=== PATIENT | male | born 1970 | race Caucasian/White ===

== ENCOUNTER 2016-10-18 16:05 | Inpatient (IN) ==
--- NOTE | 2016-10-18 16:16 | Emergency Department Report ---
Abdominal Pain HPI - General Chief Complaint: Abdominal Pain <Nathan Navarrete Q - 10/18/16 16:16> Stated Complaint: Abdominal Pain <Nathan Navarrete - 10/18/16 16:16> Time Seen by Provider: 10/18/16 16:15 <Nathan Navarrete Q - 10/18/16 16:16> Source: patient <Nathan Navarrete - 10/18/16 17:08> Mode of arrival: ambulatory <Nathan Navarrete - 10/18/16 17:08> Limitations: no limitations <Nathan Navarrete - 10/18/16 17:08> - History of Present Illness HPI narrative: Patient is a 46-year-old male presents emergency room for evaluation of diffuse abdominal pain. 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 or his primary medical physician today decided present to the ER for evaluation complaining of 10/10 pain <Nathan Navarrete Q - 10/18/16 17:13> MD complaint: abdominal pain <Nathan Navarrete Q - 10/18/16 17:08> Onset (ago): week(s) (2 weeks) <Nathan Navarrete - 10/18/16 17:08> Consistency: constant <Nathan Navarrete - 10/18/16 17:08> Quality: sharp <Nathan Navarrete - 10/18/16 17:08> - Related Data Home Medications Medication Instructions Recorded Confirmed Acetaminophen [Acetaminophen Extra 1,000 mg PO Q4H PRN 10/18/16 10/18/16 Strength] Previous Rx's Medication Instructions Recorded Ascorbic Acid [Vitamin C] 500 mg PO WB tablet 10/23/16 Ciprofloxacin [Cipro] 500 mg PO BID #14 tablet 10/23/16 Ferrous Sulfate [Feosol] 324 mg PO WB tablet 10/23/16 Lisinopril [Prinivil] 10 mg PO DAILY #30 tablet 10/23/16 Mesalamine [Asacol Hd] 800 mg PO TID #90 tablet 10/23/16 MetroNIDAZOLE [Flagyl] 500 mg PO BIDWM #14 tablet 10/23/16 Oxycodone/APAP 10/325 [Percocet 1 tab PO Q4H PRN #40 tablet 10/23/16 10/325] PredniSONE [Deltasone] 40 mg PO WB #30 tablet 10/23/16 <Nathan Navarrete Q - 10/18/16 16:16> Allergies Allergy/AdvReac Type Severity Reaction Status Date / Time amoxicillin Allergy Severe SWELLING Verified 10/18/16 16:22 Onions Allergy Intermediate BLEEDING Verified 10/18/16 16:22 Penicillins Allergy Unknown Verified 10/18/16 16:22 hydrocodone AdvReac Unknown "TEARS UP Verified 10/18/16 16:22 MY GUT" <Nathan Navarrete Q - 10/18/16 16:16> Review of Systems Constitutional: Reports: weakness. Denies: fever, chills <Nathan Navarrete Q - 10/18/16 17:08> ENT: Denies: throat pain, congestion <Nathan Navarrete Q - 10/18/16 17:08> Gastrointestinal: Reports: abdominal pain, nausea, diarrhea. Denies: vomiting, constipation <Nathan Navarrete Q - 10/18/16 17:08> Genitourinary: Denies: dysuria, frequency <Nathan Navarrete Q - 10/18/16 17:08> Neurological: Denies: headache, weakness <Nathan Navarrete Q - 10/18/16 17:08> [facility]LY [facility] Patient Stated Medical History Other GI Yes: ULCERATIVE COLITIS <Sumeet Ghosh C - 10/18/16 19:15> Medical History Updates: Ulcerative colitis. Anal fissures <Nathan Navarrete Q - 10/18/16 17:08> Surgical History: Setons for perirectal fistulas <Nathan Navarrete Q - 10/18/16 17:13> Family History: Family history of MIs <Nathan Navarrete Q - 10/18/16 17:13> - Social History Smoking status: Never smoker <Nathan Navarrete Q - 10/18/16 17:08> Substance use type: does not use <Nathan Navarrete Q - 10/18/16 17:08> Alcohol intake frequency: does not drink <Nathan Navarrete Q - 10/18/16 17:08> Physical Exam - Limitations Limitations: no limitations <Nathan Navarrete - 10/18/16 17:13> - General General appearance: alert, in distress <Nathan Navarrete Q - 10/18/16 17:13> - Eye Eye exam: Present: normal appearance <Nathan Navarrete Q - 10/18/16 17:13> - ENT ENT exam: Present: normal oropharynx, mucous membranes moist <Doretha Navarreten Q - 10/18/16 17:13> - Neck Neck exam: Present: full ROM <Doretha Navarreten Q - 10/18/16 17:13> - Chest Chest inspection: Present: symmetric chest wall rise <Nathan Navarrete Q - 17:13> - Respiratory Respiratory exam: Present: normal lung sounds bilaterally. Absent: respiratory distress, wheezes, stridor <Doretha Navarreten Q - 10/18/16 17:13> - Cardiovascular Cardiovascular exam: Present: regular rate, normal rhythm, normal heart sounds <Doretha Navarreten Q - 10/18/16 17:13> - Abdominal Exam Abdominal exam: Present: soft, tenderness (tenderness to palpation localizing to the left lower quadrant), guarding. Absent: distention, rebound <Doretha Navarreten Q - 10/18/16 17:13> - Rectal Exam Rectal exam: Present: other (patient has to seton placements in perirectal fistulas, one of a possible sign of perirectal fistula) <Doretha Navarreten Q - 17:13> - Skin Skin exam: Present: warm, dry <Doretha Navarreten Q - 10/18/16 17:13> - Neurological Exam Neurological exam: Present: alert, oriented X3 <Doretha Navarreten Q - 10/18/16 17: 13> - Psychiatric Psychiatric exam: Present: normal affect, normal mood <Doretha Navarreten Q - 10/18 17:13> Course Vital Signs Temperature 98.8 F 10/18/16 16:05 Pulse Rate 109 H 10/18/16 16:05 Respiratory Rate 18 10/18/16 16:05 Blood Pressure 141/76 H 10/18/16 16:05 Pulse Oximetry 96 10/18/16 16:05 Temperature 98 F 10/18/16 18:33 Pulse Rate 99 10/18/16 18:33 Respiratory Rate 18 10/18/16 18:33 Blood Pressure 137/61 10/18/16 18:33 Pulse Oximetry 97 10/18/16 18:33 <Sumeet Ghosh - 10/18/16 19:15> Abdominal Pain - MDM Narrative Medical decision making narrative: Labs / imaging reviewed in detail with the patient and questions are answered. Patient is given IV hydration. Patient is given analgesic pain medication in the emergency department with improvement of symptoms. Patient is given 125 mg of Solu-medrol intravenously times one. Patient is discussed with Dr. Sauceda of telemedicine hospitalist service and admitted to the service of Dr. Phillips in improved condition. Patient and family are in agreement with the current plan of management. Patient is admitted to the hospital in improved condition. No further orders from accepting physician who is in agreement with the current plan of management. Accepting physician will make her own surgical consultation as needed. <Sumeet Ghosh - 10/18/16 19:15> - Differential Diagnosis Differential diagnosis: Likely: abdominal pain, diverticulitis, gastroenteritis , pancreatitis, small bowel obstruction <Sumeet Ghosh - 10/18/16 19:15> - Lab Data Result diagrams: 10/23/16 03:57 10/23/16 03:56 <Nathan Navarrete Q - 10/18/16 16:16> Lab Results 10/18/16 10/18/16 10/18/16 Range/Units 16:36 16:36 17:05 WBC 13.3 H (4.5-11.0) T/MM3 RBC 4.74 (4.50-5.90) M/MM3 Hgb 10.2 L (13.5-17.5) GM/DL Hct 33.6 L (41-53) % MCV 70.9 L (80-100) UM3 MCH 21.5 L (26-34) UUG MCHC 30.4 L (31-37) GM/DL RDW Std Deviation 47.2 (36.9-50.2) FL Plt Count 724 H (130-400) T/MM3 MPV 8.4 L (9.4-12.4) UM3 Immature Gran % (Auto) 0.3 (0.0-0.5) % Neut % (Auto) 83.6 H (33-66) % Lymph % (Auto) 5.8 L (23-45) % [place] % (Auto) 9.4 H (0-9.0) % Eos % (Auto) 0.8 (0-4) % Baso % (Auto) 0.1 (0-2) % Neut # 11.1 H (1.8-7.7) T/MM3 Lymph # 0.8 L (1-4.8) T/MM3 [place] # 1.3 H (0-0.8) T/MM3 Eos # 0.1 (0-0.5) T/MM3 Baso # 0.0 (0-0.2) T/MM3 Abs Immat Gran (auto) 0.04 H (0.00-0.03) T/MM3 Turbidity < 20 (0-20) Sodium 137 (134-144) MEQ/L Potassium 3.3 L (3.6-5) MEQ/L Chloride 102 (98-107) MEQ/L Carbon Dioxide 24 (22-30) MEQ/L Anion Gap 11 (5-15) MEQ/L BUN 12.0 (9-20) MG/DL Creatinine 0.7 L (0.8-1.5) MG/DL GFR Calculation 121 BUN/Creatinine Ratio 17 (6-26) RATIO Glucose 212 H (75-110) MG/DL Calculated Osmolality 270 (261-280) MOSM/KG Calcium 8.2 L (8.4-10.2) MG/DL Total Bilirubin 0.30 (0.20-1.30) MG/DL Icterus Index < 2 (0-7) AST 12 L (17-59) U/L ALT 28 (21-72) U/L Alkaline Phosphatase 111 (38-126) U/L C-Reactive Protein 193.4 H (0-9) MG/L Total Protein 6.6 (6.3-8.2) G/DL Albumin 3.4 L (3.5-5.0) G/DL Globulin 3.2 (2.4-3.6) G/DL Albumin/Globulin Ratio 1.1 (1.1-2.2) RATIO Lipase 32 (23-300) U/L Specimen Hemolysis < 15 (0-25) Ur Collection Type Urine, clean catch Urine Color Yellow (YELLOW) Urine Clarity Clear Urine pH 6.0 (5.0-8.0) Ur Specific [place] 1.020 (1.015-1.025) Urine Protein 1+ A (NEGATIVE) Urine Glucose (UA) Negative (NEGATIVE) Urine Ketones Negative (NEGATIVE) Urine Occult Blood Trace-lysed (NEGATIVE) Urine Nitrate Negative (NEGATIVE) Urine Bilirubin Negative (NEGATIVE) Urine Urobilinogen 0.2 (NORMAL) EU/DL Ur Leukocyte Esterase Negative (NEGATIVE) Urine RBC 0-1 (0-3) /HPF Urine WBC 1-3 (0-5) /HPF Urine Bacteria None seen (NEGATIVE) Ur Culture Indicated? Cult not indicated <Sumeet Ghosh C - 10/18/16 19:15> - Radiology Data CT ABD/PELVIS: Colitis, recommend follow-up colonoscopy. Transverse colon distention and possible partial obstruction, neoplasm or stricture in the descending colon cannot be excluded. <Sumeet Ghosh 10/18/16 19:15> Disposition Clinical Impression: Ulcerative colitis Qualifiers: Ulcerative colitis location: unspecified ulcerative colitis location Digestive disease complication type: with fistula Qualified Code(s): K51.913 - Ulcerative colitis, unspecified with fistula <Nathan Navarrete Q 11/28/16 06:27> Disposition: 02 To [facility] [place] Acute Care <Nathan Navarrete Q 11/28/16 06:27> Condition: Improved <Nathan Navarrete Q 11/28/16 06:27> Instructions: <Nathan Navarrete Q 10/18/16 16:16> Prescriptions: New Ascorbic Acid [Vitamin C] 500 mg PO WB tablet Ciprofloxacin [Cipro] 500 mg PO BID #14 tablet Ferrous Sulfate [Feosol] 324 mg PO WB tablet Lisinopril [Prinivil] 10 mg PO DAILY #30 tablet MetroNIDAZOLE [Flagyl] 500 mg PO BIDWM #14 tablet Oxycodone/APAP 10/325 [Percocet 10/325] 1 tab PO Q4H PRN #40 tablet PRN Reason: Pain Mesalamine [Asacol Hd] 800 mg PO TID #90 tablet PredniSONE [Deltasone] 40 mg PO WB #30 tablet Continue Acetaminophen [Acetaminophen Extra Strength] 1,000 mg PO Q4H PRN PRN Reason: Pain Discontinued Mesalamine [Asacol Hd] 800 mg PO DAILY <Nathan Navarrete Q - 10/18/16 16:16> Referrals: Arslan Alcazar MD [Family Provider] - <Nathan Navarrete - 16:16> Forms: <Nathan Navarrete Q - 10/18/16 16:16> Time of Disposition: 18:50 (Admit. Dr. Phillips) <Sumeet Ghosh - 10/18/16 19:15 > - Seen By: physician <Sumeet Ghosh - 10/18/16 19:15>
[2016-10-18] MEDS ORDERED: HYDROMORPHONE 2 MG/ML INJECTION IVP ONE ×2 (16:22→17:34)
[2016-10-18] MEDS ORDERED: NS 1,000 ML IV ONE (16:23)
[2016-10-18] MEDS: SALINE FLUSH 10ml SYRINGE IVF PRN ×2 (16:41→17:44)
[2016-10-18] MEDS ORDERED: METHYLPREDNISOLONE SOD SUCC 125mg/2ml INJECTION IVP ONE (17:04)
[2016-10-18] MEDS ORDERED: NS 100 ML ONE (17:24)
[2016-10-18] MEDS ORDERED: SALINE FLUSH 10ml SYRINGE ONE (17:24)
[2016-10-18] MEDS ORDERED: IOHEXOL 300mg/ml 100ml INJECTION ONE (17:24)
[2016-10-18] MEDS ORDERED: ACETAMINOPHEN 500 MG TABLET PO PRN (20:08)
[2016-10-18] MEDS ORDERED: ONDANSETRON 4 MG/2 ML INJECTION IVP PRN (20:08)
[2016-10-18 20:18] VITALS: BMI 25.1
[2016-10-18] MEDS: HYDROMORPHONE 2 MG/ML INJECTION IVP PRN ×2 (20:32→22:49)
[2016-10-18] MEDS: NS 1,000 ML IV SCH (20:38)
--- NOTE | 2016-10-18 20:59 | History & Physical Report ---
History of Present Illness Date: 10/18/16 Chief complaint: Abdominal pain/diarrhea HPI: 46 yo M with PMH of ulcerative colitis presented to the ED today with reports of a UC flare. Patient reports his symptoms started 1 week ago with fever and rectal fistula opening. He reports 10-15 loose stools a day, some with a mild amount of blood in them. He reports he has been taking his mesalamine at home and no other medications. He gets a flare about once a year. 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 He reports he decided to come in to the ED today because he was in bed for 2-3 days and he just wasn't getting any better. He was admitted for steroids and supportive care. Review of Systems All systems: reviewed and no additional remarkable complaints except as stated PFSH Patient Stated Medical History Other HEENT Yes: rt ear swells Other GI Yes: ULCERATIVE COLITIS Medical History Updates: Ulcerative colitis. Anal fissures Surgical History: Setons for perirectal fistulas - Social History Smoking status: Never smoker Medications Home Medications Medication Instructions Recorded Confirmed Type Acetaminophen [Acetaminophen Extra 1,000 mg PO Q4H PRN 10/18/16 10/18/16 History Strength] Mesalamine [Asacol Hd] 800 mg PO DAILY 10/18/16 10/18/16 History Allergies Allergy/AdvReac Type Severity Reaction Status Date / Time amoxicillin Allergy Severe SWELLING Verified 10/18/16 16:22 Onions Allergy Intermediate BLEEDING Verified 10/18/16 16:22 Penicillins Allergy Unknown Verified 10/18/16 16:22 hydrocodone AdvReac Unknown "TEARS UP Verified 10/18/16 16:22 MY GUT" Exam Vital Signs: Temperature 98 F 10/18/16 18:33 Pulse Rate 99 10/18/16 18:33 Respiratory Rate 18 10/18/16 18:33 Blood Pressure 137/61 10/18/16 18:33 Pulse Oximetry 97 10/18/16 18:33 Height: 1.83 m Weight: 84 kg Body Mass Index: 25.1 - Constitutional Present: well nourished, well developed - Routine Respiratory Exam Present: CTA bilaterally. Absent: wheezes - Routine Cardiovascular Exam Present: RRR. Absent: murmur - Routine Abdominal Exam Present: soft, tenderness - Routine Rectal Exam Comments: nursing staff reports 4 open fissures, no acute erythema or infection noted. - Routine Extremities Exam Present: normal capillary refill - Routine Skin Exam Present: dry, warm - Routine Neurological Exam Present: alert, oriented X3, CN II-XII intact - Routine Psychiatric Exam Present: normal affect Results - Labs CBC & Chem 7: 10/18/16 16:36 10/18/16 16:36 Assessment and Plan (1) Ulcerative colitis Current visit: Yes Status: Acute 10/18/16 21:01 UC with flare. Will start supportive care with IVF, CLD and PO steroids. Will start prednisone 60mg QD. Patient has not used biologics in the past for [place] and has not seen his GI specialist in a few years. Patient hypodermically stable and not acidic at this time. Continue home mesalamine. Consider colorectal surg consult in AM. DVT Prophylaxis: SCD's Resuscitation Status: Full Code Sepsis Assessment - Evaluation Possible source: GI tract/intra-abdominal Confirmed Suspected Infection: No (UC flare) SIRS Criteria: WBC > or equal to 12,000 Hospital Course Summary Disclaimer: The visit summary below is not to be considered part of the above Progress Note.
[2016-10-18] MEDS: PredniSONE 20 MG TABLET PO SCH (21:19)
[2016-10-19] MEDS: HYDROMORPHONE 2 MG/ML INJECTION IVP PRN ×9 (01:02→22:15)
[2016-10-19] MEDS: ZOLPIDEM 5 MG TABLET PO PRN (01:10)
[2016-10-19] MEDS: NS 1,000 ML IV SCH ×2 (05:58→15:34)
[2016-10-19] MEDS: SALINE FLUSH 10ml SYRINGE IVF PRN ×3 (08:40→13:02)
--- NOTE | 2016-10-19 08:42 | CT Scan Report ---
Indication: abdominal pain, history of ulcerative colitis PROCEDURE: CT abdomen pelvis w con: Encounter: Initial Comparison: CT abdomen and pelvis dated February 11, 2016 and December 08, 2014 Technique: Axial CT images were performed through the abdomen and pelvis after the administration of intravenous contrast. Coronal and sagittal two-dimensional reformats. Automated Exposure Control and Iterative Reconstruction dose reducing techniques were utilized. Contrast: Omnipaque 300 100 mL Findings: The lung bases are clear. The liver is unremarkable. The gallbladder is within normal limits. The spleen, pancreas and adrenal glands are normal. Bilateral renal cysts. No abdominal or pelvic adenopathy. Bladder is normal. Wall thickening and inflammatory change involving the colon extending from the proximal transverse through the rectum consistent with patient's history of ulcerative colitis. The appendix appears normal. No evidence of small bowel obstruction. Colonic involvement is of similar extent compared to the prior study. Impression: Continued findings of ulcerative colitis which appears active extending from the transverse colon through the rectum. There is a probable inflammatory stricture at the splenic flexure leading to gradual progression of chronic transverse colonic distention. There is a preliminary report by [facility]. .
[2016-10-19] MEDS: PredniSONE 20 MG TABLET PO SCH (08:58)
[2016-10-19] MEDS: MESALAMINE 800 MG TABLET PO SCH (09:00)
--- NOTE | 2016-10-19 09:43 | Progress Note ---
Subjective: Feels much better. Wants to try eating. Leakage from his fistula sites is much improved. Pain much improved. Objective Vital signs: Temperature 97.3 F 10/19/16 07:28 Pulse Rate 75 10/19/16 07:18 Respiratory Rate 18 10/19/16 07:18 Blood Pressure 124/71 10/19/16 07:18 Pulse Oximetry 97 10/19/16 07:18 Oxygen Delivery Method Room Air Gen.-he is awake alert oriented 3, NAD HEENT-PERRLA EOMI Neck-supple no JVD no bruits Cardiovascular-regular rate and rhythm Lungs-CTAB Abdomen-mild tenderness LLQ Extremities-no edema cyanosis or clubbing Neurological-nonfocal Skin-WDI Weight: 83.3 kg Results - Labs CBC & Chem 7: 10/18/16 16:36 10/18/16 16:36 Assessment and Plan (1) Ulcerative colitis Current visit: Yes Status: Acute Clinically improving. We'll continue steroids and mesalamine. Advance diet as tolerated. Continue IV fluids. (2) Anemia of chronic disease Current visit: Yes Status: Chronic Baseline unclear. We'll monitor and transfuse if necessary. Patient reports only trace amount of blood in stools on occasion. Sepsis Assessment - Evaluation Sepsis screening result: No Definite Risk Hospital Course Summary Disclaimer: The visit summary below is not to be considered part of the above Progress Note.
--- NOTE | 2016-10-19 15:38 | General Surgery Consult Note ---
Consult date: 10/19/16 Attending Physician: Neida Villegas MD Reason for consult: other (ulcerative colitis) [facility] Patient Stated Medical History Other HEENT Yes: rt ear swells Other GI Yes: ULCERATIVE COLITIS Medical History Updates: Ulcerative colitis. Anal fissures and fistulas Surgical History: Colonoscopy and stents and [facility]ons for perirectal fistulas 2015 in [place]. Tonsilectomy age 10. Family History: Unknown, he is adopted - Social History Smoking status: Never smoker Alcohol intake frequency: holidays/special occasions only (used to drink more heavily, "quit" in January 2016) Household members: spouse Current occupational status: unemployed Does patient use chewing tobacco?: Yes Medications Home Medications Medication Instructions Recorded Confirmed Type Acetaminophen [Acetaminophen Extra 1,000 mg PO Q4H PRN 10/18/16 10/18/16 History Strength] Mesalamine [Asacol Hd] 800 mg PO DAILY 10/18/16 10/18/16 History Allergies Allergy/AdvReac Type Severity Reaction Status Date / Time amoxicillin Allergy Severe SWELLING Verified 10/18/16 16:22 Onions Allergy Intermediate BLEEDING Verified 10/18/16 16:22 Penicillins Allergy Unknown Verified 10/18/16 16:22 hydrocodone AdvReac Unknown "TEARS UP Verified 10/18/16 16:22 MY GUT" Review of Systems 10-point ROS: negative except for HPI and the following: - General General: Present: fever (prior to admission) - Gastrointestinal Gastrointestinal: Present: diarrhea, other (abd pain) - Vital Signs Last Vital Signs Temp 97.0 F 10/19/16 15:04 Pulse 73 10/19/16 15:04 Resp 18 10/19/16 15:04 BP 128/84 10/19/16 15:04 Pulse Ox 100 10/19/16 15:04 - Laboratory Result Diagrams: 10/18/16 16:36 10/18/16 16:36 Hospital Course Summary Disclaimer: The visit summary below is not to be considered part of the above Progress Note. Sepsis Assessment - Evaluation Sepsis screening result: No Definite Risk
[2016-10-20] MEDS: HYDROMORPHONE 2 MG/ML INJECTION IVP PRN ×11 (00:25→23:23)
[2016-10-20] MEDS: ZOLPIDEM 5 MG TABLET PO PRN ×2 (00:32→23:22)
[2016-10-20] MEDS: NS 1,000 ML IV SCH ×3 (02:04→22:22)
--- NOTE | 2016-10-20 08:11 | Wound Care Progress Note ---
Wound Management - Patient Status Premedicated Prior to Dressing Change: No - Wound Posterior Buttock Wound Type: Fistula Wound Present on Admission?: Yes Primary Dressing: Absorbant Pad (Pt has multiple fistulas in rectal area, Pt had a lianet drain in one previously placed by . At this time Dr You consulted.)
[2016-10-20] MEDS: PredniSONE 20 MG TABLET PO SCH (08:43)
[2016-10-20] MEDS: MESALAMINE 800 MG TABLET PO SCH ×2 (08:44→21:15)
--- NOTE | 2016-10-20 19:23 | Progress Note ---
Subjective: Osbaldo reports ongoing left lower quadrant pain which he currently rates at approximate 7.5/10. He requires frequent administration of IV Dilaudid at 2-3 hour intervals. He is tolerating oral diet and does not note change in pain level associated with food. Has been ambulatory without lightheadedness or dizziness. He denies nausea or vomiting but continues to have up to 15 stools a day with some rectal bleeding. Fistulas persist but he's had no further fever or chills. Objective Vital signs: Temperature 96.0 F L 10/20/16 15:09 Pulse Rate 87 10/20/16 15:09 Respiratory Rate 18 10/20/16 15:09 Blood Pressure 146/84 H 10/20/16 15:09 Pulse Oximetry 98 10/20/16 15:09 Oxygen Delivery Method Room Air EXAM General-NAD, alert, fluent speech HEENT-conjunctiva clear, conjugate gaze Lungs-respirations nonlabored, good airflow, breath sounds clear Cardiac-regular rhythm, S1-S2 Abd-decreased bowel sounds, abdomen is soft but there is marked tenderness with guarding in the left lower quadrant and moderate tenderness in the left upper quadrant. Ext-without edema Neuro-moving all extremities well, ambulating without assistance Psych-calm, cooperative - Weight: 85 kg Results - Labs CBC & Chem 7: 10/20/16 10:19 10/20/16 10:19 Labs: MCV 72.1, 77% neutrophils, 5% bands, 11% lymphocytes, 7% monocytes Magnesium 2.3, phosphorus 2.0, calcium 8.1 Assessment and Plan (1) Ulcerative colitis Problem details: Acute flare; with fistulas Current visit: Yes Status: Acute Assessment and Plan: Ulcerative flare-acute flare, with fistulas Abdominal pain Diarrhea Microcytic anemia Reactive thrombocytosis Hypophosphatemia Osbaldo continues to require narcotic pain medications and have multiple loose stools daily with associated blood loss. Hemoglobin is down from approximately 12 a year ago to current value of 9.5 with development of microcytosis and thrombocytosis suggestive of iron deficiency. There is persistent leukocytosis which may in part be due to steroid administration. Surgical consultation pending. Mesalamine initiated yesterday-dose increased to 1600 mg 3 times a day. Continue steroids but will resume IV dosing until abdominal symptoms began to stabilize. Add IV metronidazole pending surgical consultation. Suspect iron deficiency due to chronic rectal blood loss-iron studies to be obtained. Thrombocytosis likely due to acute inflammation that may also reflect iron deficiency. Supplement phosphorus po. CT scan reviewed by myself, high-risk medications (IV narcotics) in use, laboratory data reviewed. Sepsis Assessment - Evaluation Sepsis screening result: No Definite Risk Hospital Course Summary Disclaimer: The visit summary below is not to be considered part of the above Progress Note. Hospital Course: 10/20/16 19:59 Osbaldo continues to require narcotic pain medications and have multiple loose stools daily with associated blood loss. Hemoglobin is down from approximately 12 a year ago to current value of 9.5 with development of microcytosis and thrombocytosis suggestive of iron deficiency. There is persistent leukocytosis which may in part be due to steroid administration. Surgical consultation pending. Mesalamine initiated yesterday-dose increased to 1600 mg 3 times a day. Continue steroids but will resume IV dosing until abdominal symptoms began to stabilize. Add IV metronidazole pending surgical consultation. Suspect iron deficiency due to chronic rectal blood loss-iron studies to be obtained. Thrombocytosis likely due to acute inflammation that may also reflect iron deficiency. Supplement phosphorus po.
--- NOTE | 2016-10-20 19:51 | Consultation ---
DATE OF SERVICE 10/20/2016 FINDINGS Mr. Lobo is a 46-year-old male whom I was asked to see in consultation as a result of his history and physical findings of abdominal pain in conjunction with an abnormal CT scan. Mr. Lobo does have a known history for ulcerative colitis. He informs me that he was diagnosed with UC about 14 years ago. He is on Asacol as well as intermittent oral steroids. He informs me that he has seen Dr. Carson in the past from a gastroenterology standpoint. 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 The patient also informs me that he has been under the care of Dr. Minh De who is a colorectal surgeon. He states that Dr. De has placed several "drains" within his perianal region. He states he has had a longstanding history as well for perianal fistulas. Patient states that about a week ago his fistula has begun to stop draining. He states that they " swelled up." He also states that he began to experience increasing pain within his abdomen. Patient states that on his own behalf he began to eat significantly less for he has learned in the past this does seem to help with the pain. Patient states that eventually the areas within the perianal region "popped open and drained a considerable amount of purulent material." Patient states that this was the most "pus he has ever drained." As a result of his increasing pain and drainage from the perianal region he presented to our facility for further care. The patient has been initiated on oral prednisone. Today he states that his pain is improving. He is tolerating a regular diet. He has not had nausea or vomiting. The perianal pain that he had been experiencing is markedly improved. PAST MEDICAL HISTORY, PAST SURGICAL HISTORY, MEDICATIONS, ALLERGIES, SOCIAL HISTORY, FAMILY HISTORY, REVIEW OF SYSTEMS Performed by my nurse practitioner, Yuri Harmon APRN PHYSICAL EXAMINATION GENERAL: Mr. Lobo is a 46-year-old male who this afternoon did not appear to be in acute distress. VITAL SIGNS: Temperature 96.0, pulse 87, respirations 18, blood pressure 146/84 , SAO2 98% on room air. HEENT: Normocephalic. Pupils are equally round and react to light and accommodation. CHEST: Clear to auscultation bilaterally. HEART: Regular rate and rhythm. Normal S1 and S2 without gallops, murmurs or clicks. ABDOMEN: Palpation of the abdomen did indeed reveal significant tenderness within the left lower quadrant, left mid abdomen, left upper quadrant. The right side of his abdomen was fairly soft and nontender. The patient did have a component of both voluntary involuntary guarding upon palpation. He did not have yary rebound tenderness. I do not appreciate evidence for hepatosplenomegaly or other abnormal masses. EXTREMITIES: Without clubbing, cyanosis, or edema. NEURO: Cranial nerves II-XII grossly intact. Patient is without focal motor or sensory deficits. RECTAL: The patient was placed in a right lateral decubitus position. Buttocks were so that one could see the perianal region. The patient did have a bluish catheter present within a fistula tract. I did not perform digital rectal examination today. The perianal region was without significant erythema nor drainage currently. Palpation around the perianal region did not elicit severe pain to the patient. LABORATORY/RADIOGRAPHIC EVALUATION The patient had a CBC today and his white count was elevated at 15.5 which could be secondary to his high-dose corticosteroids. BMP was obtained and found to be without marked abnormalities. CT scan of his abdomen and pelvis was obtained. CT scan did reveal continued findings of ulcerative colitis with active disease extending from the transverse colon through the rectum. There was a possibility of an inflammatory stricture present also near the splenic flexure. There was no evidence for abscess or perforation. No evidence to suggest toxic megacolon. ASSESSMENT 46-year-old gentleman with exacerbation of his ulcerative colitis. PLAN I agree with current medical management of this patient by placing him on Asacol and high-dose oral corticosteroids. Patient without an acute surgical abdomen at this time. Patient without perianal abscess requiring surgical intervention. Will continue to see the patient intermittently during his hospital course. [facility]
[2016-10-20] MEDS: MetroNIDAZOLE PB 500 MG/100 ML BAG IV SCH (21:04)
[2016-10-20] MEDS: PHOSPHORUS 250 MG TABLET PO SCH (21:05)
[2016-10-21] MEDS ORDERED: METHYLPREDNISOLONE SOD SUCC 40mg/ml INJECTION IM SCH (01:00)
[2016-10-21] MEDS: NS 1,000 ML IV SCH ×3 (01:12→20:01)
[2016-10-21] MEDS: METHYLPREDNISOLONE SOD SUCC 40mg/ml INJECTION IVP SCH ×3 (01:29→17:34)
[2016-10-21] MEDS: HYDROMORPHONE 2 MG/ML INJECTION IVP PRN ×10 (01:31→22:51)
[2016-10-21] MEDS: MetroNIDAZOLE PB 500 MG/100 ML BAG IV SCH ×2 (08:07→21:09)
[2016-10-21] MEDS: PHOSPHORUS 250 MG TABLET PO SCH ×4 (08:08→21:10)
[2016-10-21] MEDS: MESALAMINE 800 MG TABLET PO SCH ×3 (08:22→21:09)
--- NOTE | 2016-10-21 16:18 | Progress Note ---
Subjective: Osbaldo continues to have pain in the left lower quadrant although reports it is somewhat improved from yesterday. There is less drainage from the perirectal fistulas and he believes only 2 are open at this time. He slept better last night after adding Ambien. He's had no further fever. Continues to have multiple liquid stools daily with decreasing rectal bleeding. He tolerates food well and has no lightheadedness, nausea, vomiting, or palpitations. Objective Vital signs: Temperature 96.8 F 10/21/16 15:03 Pulse Rate 79 10/21/16 15:03 Respiratory Rate 16 10/21/16 15:03 Blood Pressure 141/85 H 10/21/16 15:03 Pulse Oximetry 97 10/21/16 15:03 Oxygen Delivery Method Room Air EXAM General-NAD, alert, fluent speech HEENT-conjunctiva clear, sclera anicteric Lungs-respirations nonlabored, good airflow, breath sounds clear Cardiac-regular rhythm, S1-S2 Abd-soft, diminished bowel sounds, mild-moderate tenderness left lower quadrant with guarding present-improved from yesterday Ext-without edema Neuro-moving all extremities well, ambulating unassisted Psych-calm, cooperative - Weight: 86.6 kg Results - Labs CBC & Chem 7: 10/21/16 04:33 10/20/16 10:19 Labs: Segs 79, bands 14, lymphocytes 3, monocytes 4 Iron 13, TIBC 299, saturation 4% Assessment and Plan (1) Ulcerative colitis Problem details: Acute flare; with fistulas Current visit: Yes Status: Acute Clinically improving. We'll continue steroids and mesalamine. Advance diet as tolerated. Continue IV fluids. Assessment and Plan: Ulcerative flare-acute flare, with fistulas Abdominal pain Diarrhea Iron deficiency anemia Reactive thrombocytosis Hypophosphatemia Osbaldo continues to require narcotic pain medications and have multiple loose stools daily with associated blood loss. Hemoglobin stable overnight, iron studies consistent with iron deficiency-oral supplements initiated once daily. Leukocytosis improving slowly with increased left shift-if worsens may require repeat CT imaging to exclude abscess formation. Continue IV steroids, oral mesalamine, and metronidazole for acute UC flare. Exam/symptoms minimally changed, may be able to convert to oral steroids in 1-2 days. Thrombocytosis likely due to acute inflammation that may also reflect iron deficiency. Supplement phosphorus po. Recheck in 2-3 days. Pain management problematic, patient has utilized oral Percocet in the past-we will add Percocet 10 every 4 hours as needed to try to minimize IV narcotic use. High-risk medications (IV narcotics) in use, laboratory data reviewed. Sepsis Assessment - Evaluation Sepsis screening result: No Definite Risk Hospital Course Summary Disclaimer: The visit summary below is not to be considered part of the above Progress Note. Hospital Course: 10/20/16 19:59 Osbaldo continues to require narcotic pain medications and have multiple loose stools daily with associated blood loss. Hemoglobin is down from approximately 12 a year ago to current value of 9.5 with development of microcytosis and thrombocytosis suggestive of iron deficiency. There is persistent leukocytosis which may in part be due to steroid administration. Surgical consultation pending. Mesalamine initiated yesterday-dose increased to 1600 mg 3 times a day. Continue steroids but will resume IV dosing until abdominal symptoms began to stabilize. Add IV metronidazole pending surgical consultation. Suspect iron deficiency due to chronic rectal blood loss-iron studies to be obtained. Thrombocytosis likely due to acute inflammation that may also reflect iron deficiency. Supplement phosphorus po. 10/21/16 16:26 Osbaldo continues to require narcotic pain medications and have multiple loose stools daily with associated blood loss. Hemoglobin stable overnight, iron studies consistent with iron deficiency-oral supplements initiated once daily. Leukocytosis improving slowly with increased left shift-if worsens may require repeat CT imaging to exclude abscess formation. Continue IV steroids, oral mesalamine, and metronidazole for acute UC flare. Exam/symptoms minimally changed, may be able to convert to oral steroids in 1-2 days. Thrombocytosis likely due to acute inflammation that may also reflect iron deficiency. Supplement phosphorus po. Recheck in 2-3 days. Pain management problematic, patient has utilized oral Percocet in the past-we will add Percocet 10 every 4 hours as needed to try to minimize IV narcotic use.
[2016-10-21] MEDS: Oxycodone/Apap 10/325 1 TAB PO PRN ×2 (18:02→22:51)
[2016-10-21] MEDS: ZOLPIDEM 5 MG TABLET PO PRN (23:00)
[2016-10-22] MEDS: METHYLPREDNISOLONE SOD SUCC 40mg/ml INJECTION IVP SCH ×3 (00:21→16:21)
[2016-10-22] MEDS: NS 1,000 ML IV SCH ×3 (00:22→12:09)
[2016-10-22] MEDS: HYDROMORPHONE 2 MG/ML INJECTION IVP PRN ×8 (03:04→23:33)
[2016-10-22] MEDS: Oxycodone/Apap 10/325 1 TAB PO PRN ×5 (03:05→20:58)
[2016-10-22] MEDS: MetroNIDAZOLE PB 500 MG/100 ML BAG IV SCH ×2 (08:11→20:51)
[2016-10-22] MEDS: MESALAMINE 800 MG TABLET PO SCH ×3 (08:12→21:26)
[2016-10-22] MEDS: PHOSPHORUS 250 MG TABLET PO SCH ×4 (08:12→21:27)
[2016-10-22] MEDS: FERROUS SULFATE 324 MG TABLET PO SCH (08:12)
--- NOTE | 2016-10-22 11:07 | Pharmacy Consult ---
Pharmacy Consult-[facility] - Consult Information IV IRON CONSULT: Dx: Chronic Anemia: Will give TDI (Total Dose Infusion) over 4 hours. Actual body weight = 89.9kg Hgb Level = 9.5 g/dL (low over last few readings) Calculated Dosing weight = 77.6 kg Total dose needed: 1900 mg (38 mL) Will give test dose of 25mg IV push over 30 seconds. Watch VS q 15 minutes x 1 hr. (watching for anaphylaxis, respiratory distress, hives.) If no reaction will give full dose in NS 500ml TRA 125ml/hr. Watch VS q 1 hr during infusion. Thank you.
--- NOTE | 2016-10-22 11:15 | Progress Note ---
<Magali Harvey - Last Filed: 10/22/16 11:12> Subjective: Osbaldo is seen today in follow up. Some improvement, but still requiring IV Dilaudid for breakthrough pain. Is tolerating regular diet, continues to have loose stools, which is "normal" for him. He denies any N/V. LLQ pain is ongoing- this is his usual site of pain. Chart is reviewed for collateral information. Objective Vital signs: Temperature 95.4 F L 10/22/16 08:00 Pulse Rate 73 10/22/16 08:00 Respiratory Rate 16 10/22/16 08:00 Blood Pressure 151/84 H 10/22/16 08:00 Pulse Oximetry 95 10/22/16 08:00 Oxygen Delivery Method Room Air Weight: 89.9 kg - Constitutional Present: no acute distress, well nourished, average body habitus, cooperative - Routine HEENT Exam Head: Present: normocephalic, atraumatic Eye: Present: EOMI, PERRL. Absent: conjunctival icterus ENT: Present: mucous membranes moist - Routine Respiratory Exam Present: CTA bilaterally. Absent: rales, respiratory distress, rhonchi - Routine Cardiovascular Exam Present: RRR, S1, S2, no murmur - Routine Abdominal Exam Present: soft, tenderness, distended (Mild-moderate). Absent: normoactive bowel sounds (Very hypoactive BS) - Routine Rectal Exam Comments: deferred. Known fistulas - Routine Musculoskeletal Exam Musculoskeletal: Present: no clubbing or cyanosis, normal strength, moving extremities well - Routine Skin Exam Present: intact, dry, warm - Routine Neurological Exam Present: alert, oriented X3, moving all extremities - Routine Psychiatric Exam Present: normal affect, normal thought process, cooperative, good insight, good judgment Results - Labs CBC & Chem 7: 10/21/16 16:57 10/22/16 04:12 - Impressions Imaging reviewed. Assessment and Plan (1) Ulcerative colitis Problem details: Acute flare; with fistulas Current visit: Yes Status: Acute (2) Iron deficiency Current visit: Yes Status: Chronic (3) Reactive thrombocytosis Current visit: Yes Status: Acute (4) Chronic ulcerative colitis with fistula Current visit: Yes Status: Acute (5) HTN (hypertension) Current visit: Yes Status: Suspected (6) Anemia of chronic disease Current visit: Yes Status: Chronic (7) Acute pain Current visit: Yes Status: Acute DVT Prophylaxis: SCD's Resuscitation Status: Full Code Assessment and Plan: 10/22/16- *Acute on Chronic U.C. with chronic fistulas Progressive reactive thrombocytosis concerning for worsening infection. Will add Cipro for bacterial coverage. If not improvement in labs by tomorrow, consider repeating CT scan of A/P. Dr. You following. Continue Flagyl. Tolerating regular diet. *Dehydration- IVF ongoing. *Chronic diarrhea- supportive care. Abx, IVF. *Pain- PO percocet with IV Dilaudid for breakthrough pain. *Low phosphorus- replacing. Repeat renal panel in AM. *EMIL- IV iron, PO iron with vit C for replacement. *HTN- acute? continue to monitor- if persists, will need to add medication. Continue ongoing care. Repeat labs in AM. High risk- IV pain medications. - Time spent with patient 25 - 35 minutes Sepsis Assessment - Evaluation Sepsis screening result: No Definite Risk Possible source: GI tract/intra-abdominal Confirmed Suspected Infection: Yes SIRS Criteria: temperature < or equal to 96.8 Hospital Course Summary Disclaimer: The visit summary below is not to be considered part of the above Progress Note. Hospital Course: 10/20/16 19:59 Osbaldo continues to require narcotic pain medications and have multiple loose stools daily with associated blood loss. Hemoglobin is down from approximately 12 a year ago to current value of 9.5 with development of microcytosis and thrombocytosis suggestive of iron deficiency. There is persistent leukocytosis which may in part be due to steroid administration. Surgical consultation pending. Mesalamine initiated yesterday-dose increased to 1600 mg 3 times a day. Continue steroids but will resume IV dosing until abdominal symptoms began to stabilize. Add IV metronidazole pending surgical consultation. Suspect iron deficiency due to chronic rectal blood loss-iron studies to be obtained. Thrombocytosis likely due to acute inflammation that may also reflect iron deficiency. Supplement phosphorus po. 10/21/16 16:26 Osbaldo continues to require narcotic pain medications and have multiple loose stools daily with associated blood loss. Hemoglobin stable overnight, iron studies consistent with iron deficiency-oral supplements initiated once daily. Leukocytosis improving slowly with increased left shift-if worsens may require repeat CT imaging to exclude abscess formation. Continue IV steroids, oral mesalamine, and metronidazole for acute UC flare. Exam/symptoms minimally changed, may be able to convert to oral steroids in 1-2 days. Thrombocytosis likely due to acute inflammation that may also reflect iron deficiency. Supplement phosphorus po. Recheck in 2-3 days. Pain management problematic, patient has utilized oral Percocet in the past-we will add Percocet 10 every 4 hours as needed to try to minimize IV narcotic use. 10/22/16 11:23 *Acute on Chronic U.C. with chronic fistulas Progressive reactive thrombocytosis concerning for worsening infection. Will add Cipro for bacterial coverage. If not improvement in labs by tomorrow, consider repeating CT scan of A/P. Dr. You following. Continue Flagyl. Tolerating regular diet. *Dehydration- IVF ongoing. *Chronic diarrhea- supportive care. Abx, IVF. *Pain- PO percocet with IV Dilaudid for breakthrough pain. *Low phosphorus- replacing. Repeat renal panel in AM. *EMIL- IV iron, PO iron with vit C for replacement. *HTN- acute? continue to monitor- if persists, will need to add medication. Continue ongoing care. Repeat labs in AM. High risk- IV pain medications. <Rai Silva - Last Filed: 10/22/16 12:07> Objective Vital signs: Temperature 95.4 F L 10/22/16 08:00 Pulse Rate 73 10/22/16 08:00 Respiratory Rate 16 10/22/16 08:00 Blood Pressure 151/84 H 10/22/16 08:00 Pulse Oximetry 95 10/22/16 08:00 Oxygen Delivery Method Room Air Results - Labs CBC & Chem 7: 10/21/16 16:57 10/22/16 04:12 Assessment and Plan (1) Ulcerative colitis Problem details: Acute flare; with fistulas Current visit: Yes Status: Acute (2) Anemia of chronic disease Current visit: Yes Status: Chronic (3) Iron deficiency Current visit: Yes Status: Chronic (4) Reactive thrombocytosis Current visit: Yes Status: Acute (5) Chronic ulcerative colitis with fistula Current visit: Yes Status: Acute (6) HTN (hypertension) Current visit: Yes Status: Suspected (7) Acute pain Current visit: Yes Status: Acute Assessment and Plan: Have independently interviewed and examined pt. Chart reviewed. Case discussed with my SCIENTIFIC PROCESS OPERATOR. Care plan developed with my supervision; agree with above. Doing better today-feels is improving. Ab pain with decrease-getting closer to baseline. Pt using Percocet and trying to decrease Dilaudid use. Stools decreasing in frequency and becoming less liquid. Eating wel-no increased ab pain, nausea, or stool output with oral intake. Denies mouth pain or pain with swallowing. Breathing well-not SOA or congested. No chest pressure or pain. Ambulating well-strength improving; denies dizziness or unsteadiness when up. Urinating well-reports needing to urinate at times when not needing to pass stool. Lungs: clear bilaterally, no crackles or wheezes. Breathing comfortably without distress CV: regular AB: soft nd +BS; mild diffuse tenderness without rebound. EXT: no edema, strong radial pulses bilaterally Neuro: intact Psych: awake alert appropriate. Plan: Continue with IV Solu-Medrol and Metronidazole for UC flare. Will give IV Iron due to anemia with low iron stores-discussed with pt; continue oral iron and add Vit C with iron. Encourage ambulation. Will decrease IVF to 50cc/hr as oral drive improving. Continue pain control-tolerating pain medications well. Recheck CMP, Mg, Phos, CBC and CRP in am due to medications, IVF, anemia, and UC with flair. High risk medication in use-IV Dilaudid. Time spent with patient care 35 minutes -majority face to face time discussing symptoms, treatments, and medication use. Questions answered to pt's satisfaction. Hospital Course Summary Disclaimer: The visit summary below is not to be considered part of the above Progress Note.
[2016-10-22] MEDS: CIPROFLOXACIN PB 400 MG/200 ML BAG IV SCH ×2 (12:00→23:39)
[2016-10-22] MEDS ORDERED: IRON DEXTRAN COMPLEX 100mg/2ml INJECTION IV ONE (12:30)
[2016-10-22] MEDS ORDERED: IRON DEXTRAN 1,900 MG in NS 500ml 500 ML IV SCH (13:30)
[2016-10-22] MEDS: ZOLPIDEM 5 MG TABLET PO PRN (23:34)
[2016-10-22 23:36] VITALS: O2SAT 96
[2016-10-23] MEDS: METHYLPREDNISOLONE SOD SUCC 40mg/ml INJECTION IVP SCH ×2 (01:00→08:09)
[2016-10-23] MEDS: HYDROMORPHONE 2 MG/ML INJECTION IVP PRN ×4 (03:09→10:26)
[2016-10-23] MEDS: Oxycodone/Apap 10/325 1 TAB PO PRN ×2 (05:56→10:26)
[2016-10-23 07:21] VITALS: BP 150/83; PULSE 56; RESP 18; TEMP 95.9
[2016-10-23] MEDS ORDERED: ASCORBIC ACID 500 MG TABLET PO SCH (08:00)
[2016-10-23] MEDS: PHOSPHORUS 250 MG TABLET PO SCH ×2 (08:09→12:35)
[2016-10-23] MEDS: MetroNIDAZOLE PB 500 MG/100 ML BAG IV SCH (08:09)
[2016-10-23] MEDS: FERROUS SULFATE 324 MG TABLET PO SCH (08:09)
[2016-10-23] MEDS: MESALAMINE 800 MG TABLET PO SCH (08:09)
[2016-10-23] MEDS: NS 1,000 ML IV SCH (09:15)
[2016-10-23] MEDS: CIPROFLOXACIN PB 400 MG/200 ML BAG IV SCH (10:27)
--- NOTE | 2016-10-23 11:29 | Progress Note ---
<Magali Harvey - Last Filed: 10/23/16 11:26> Subjective: Osbaldo is seen today in follow up. He reports that he had a difficult night last night. Reports significant abdominal distention and worsening pain with IV iron infusion. It has now improved back to pre-infusion status. No fever. He is eating ok. No N/V. Tolerating the addition of Cipro well. Objective Vital signs: Temperature 95.9 F L 10/23/16 07:20 Pulse Rate 56 L 10/23/16 07:20 Respiratory Rate 18 10/23/16 07:20 Blood Pressure 150/83 H 10/23/16 07:20 Pulse Oximetry 96 10/23/16 07:20 Oxygen Delivery Method Room Air Weight: 88.5 kg - Constitutional Present: no acute distress, well nourished, average body habitus, cooperative - Routine HEENT Exam Head: Present: normocephalic, atraumatic Eye: Present: EOMI, PERRL ENT: Present: mucous membranes moist, dentition normal - Routine Respiratory Exam Present: CTA bilaterally. Absent: rhonchi, stridor, wheezes, crackles - Routine Cardiovascular Exam Present: RRR, S1, S2, no murmur - Routine Abdominal Exam Present: soft, tenderness, non distended. Absent: rebound - Routine Extremities Exam Present: no edema, non tender - Routine Back/Spine/Pelvis Exam Back/Spine: Present: full ROM - Routine Musculoskeletal Exam Musculoskeletal: Present: no clubbing or cyanosis, no tenderness - Routine Skin Exam Present: intact, dry, warm - Routine Neurological Exam Present: alert, oriented X3 - Routine Psychiatric Exam Present: normal affect, normal thought process Results - Labs CBC & Chem 7: 10/23/16 03:57 10/23/16 03:56 Assessment and Plan (1) Ulcerative colitis Problem details: Acute flare; with fistulas Current visit: Yes Status: Acute Clinically improving. We'll continue steroids and mesalamine. Advance diet as tolerated. Continue IV fluids. (2) Iron deficiency Current visit: Yes Status: Chronic (3) Reactive thrombocytosis Current visit: Yes Status: Acute (4) Chronic ulcerative colitis with fistula Current visit: Yes Status: Acute (5) HTN (hypertension) Current visit: Yes Status: Suspected (6) Anemia of chronic disease Current visit: Yes Status: Chronic Baseline unclear. We'll monitor and transfuse if necessary. Patient reports only trace amount of blood in stools on occasion. (7) Acute pain Current visit: Yes Status: Acute Assessment and Plan: 10/23/16- *UC with flair/Hx. rectal fistula Does report an exacerbation of pain, which he has attributed to IV Iron Continue steroids. Improving leukocytosis/thrombocytosis with the addition of Cipro. Continue Flagyl *Hydration- IVF. *Anemia, acute on chronic- S/P IV Iron. Continue PO Iron, Vit C. *HTN- Has been consistently elevated. Add BLANCO-I and monitor. Overall, he continues to demonstrate improvement. Consider change to oral steroids and antibiotics and monitor overnoc before discharge vs. DC later today. D/W Dr. Silva. Sepsis Assessment - Evaluation Sepsis screening result: No Definite Risk Hospital Course Summary Disclaimer: The visit summary below is not to be considered part of the above Progress Note. Hospital Course: 10/20/16 19:59 Osbaldo continues to require narcotic pain medications and have multiple loose stools daily with associated blood loss. Hemoglobin is down from approximately 12 a year ago to current value of 9.5 with development of microcytosis and thrombocytosis suggestive of iron deficiency. There is persistent leukocytosis which may in part be due to steroid administration. Surgical consultation pending. Mesalamine initiated yesterday-dose increased to 1600 mg 3 times a day. Continue steroids but will resume IV dosing until abdominal symptoms began to stabilize. Add IV metronidazole pending surgical consultation. Suspect iron deficiency due to chronic rectal blood loss-iron studies to be obtained. Thrombocytosis likely due to acute inflammation that may also reflect iron deficiency. Supplement phosphorus po. 10/21/16 16:26 Osbaldo continues to require narcotic pain medications and have multiple loose stools daily with associated blood loss. Hemoglobin stable overnight, iron studies consistent with iron deficiency-oral supplements initiated once daily. Leukocytosis improving slowly with increased left shift-if worsens may require repeat CT imaging to exclude abscess formation. Continue IV steroids, oral mesalamine, and metronidazole for acute UC flare. Exam/symptoms minimally changed, may be able to convert to oral steroids in 1-2 days. Thrombocytosis likely due to acute inflammation that may also reflect iron deficiency. Supplement phosphorus po. Recheck in 2-3 days. Pain management problematic, patient has utilized oral Percocet in the past-we will add Percocet 10 every 4 hours as needed to try to minimize IV narcotic use. 10/22/16 11:23 *Acute on Chronic U.C. with chronic fistulas Progressive reactive thrombocytosis concerning for worsening infection. Will add Cipro for bacterial coverage. If not improvement in labs by tomorrow, consider repeating CT scan of A/P. Dr. You following. Continue Flagyl. Tolerating regular diet. *Dehydration- IVF ongoing. *Chronic diarrhea- supportive care. Abx, IVF. *Pain- PO percocet with IV Dilaudid for breakthrough pain. *Low phosphorus- replacing. Repeat renal panel in AM. *EMIL- IV iron, PO iron with vit C for replacement. *HTN- acute? continue to monitor- if persists, will need to add medication. Continue ongoing care. Repeat labs in AM. High risk- IV pain medications. 10/23/16 11:36 *UC with flair/Hx. rectal fistula Does report an exacerbation of pain, which he has attributed to IV Iron Continue steroids. Improving leukocytosis/thrombocytosis with the addition of Cipro. Continue Flagyl *Hydration- IVF. *Anemia, acute on chronic- S/P IV Iron. Continue PO Iron, Vit C. *HTN- Has been consistently elevated. Add BLANCO-I and monitor. Overall, he continues to demonstrate improvement. Consider change to oral steroids and antibiotics and monitor overnoc before discharge vs. DC later today. D/W Dr. Silva. <Rai Silva D - Last Filed: 10/23/16 12:54> Objective Vital signs: Temperature 95.9 F L 10/23/16 07:20 Pulse Rate 56 L 10/23/16 07:20 Respiratory Rate 18 10/23/16 07:20 Blood Pressure 150/83 H 10/23/16 07:20 Pulse Oximetry 96 10/23/16 07:20 Oxygen Delivery Method Room Air Results - Labs CBC & Chem 7: 10/23/16 03:57 10/23/16 03:56 Assessment and Plan (1) Ulcerative colitis Problem details: Acute flare; with fistulas Current visit: Yes Status: Acute (2) Anemia of chronic disease Current visit: Yes Status: Chronic (3) Iron deficiency Current visit: Yes Status: Chronic (4) Reactive thrombocytosis Current visit: Yes Status: Acute (5) Chronic ulcerative colitis with fistula Current visit: Yes Status: Acute (6) HTN (hypertension) Current visit: Yes Status: Suspected (7) Acute pain Current visit: Yes Status: Acute Assessment and Plan: Have independently interviewed and examined pt. Chart reviewed. Case discussed with nursing, Pharm, and my [employer]. Care plan developed with my supervision; agree with above. Doing well today-did have ab pain towards the end of IV Iron infusion but pain has decreased. Eating well-no nausea or increased ab pain with eating. Stools decreasing in frequency and less loose. Decreased fecal urgency noted. No f/c. Ambulating well. Breathing well. Lungs: clear CV: regular AB: soft nd +BS, minimal tenderness-no rebound/guarding EXT: no edema, radial pulses normal bilaterally MSE: awake alert appropriate NEURO: intact-no deficits. Plan: Will d/c to home today. Metroniazole and ciprofloxacin for 7 days. Predisone 60mg today x1 then decrease to 40mg for 1 week-can further taper by PCP. Increase Asacol to TID dosing. Continue oral Iron/vit C. Lisinopril for BP control. Will have pt f/u with Dr Alcazar in 1 week for evaluation of UC, BP, taper Predinsone - recommend CBC at that time due to anemia and thrombocytosis and BMP due to BLANCO use. See orders for details. Time spent with pt care and discharge greater than 30 minutes. Hospital Course Summary Disclaimer: The visit summary below is not to be considered part of the above Progress Note.
[2016-10-23] MEDS ORDERED: LISINOPRIL 10 MG TABLET PO SCH (11:45)
[2016-10-23] MEDS ORDERED: PredniSONE 20 MG TABLET PO ONE (12:46)
[2016-10-23] MEDS ORDERED: Oxycodone/Apap 10/325 1 TAB PO ONE (13:00)
[2016-10-23] MEDS ORDERED: MetroNIDAZOLE 500 MG TABLET PO ONE (13:00)
[2016-10-23] MEDS ORDERED: CIPROFLOXACIN 500 MG TABLET PO ONE (13:00)
--- NOTE | 2016-10-23 13:00 | Discharge Summary ---
Discharge Information Date of admission: 10/18/16 19:55 Anticipated date of discharge: 10/23/16 Attending Physician: Rai Silva MD Primary care physician: Arslan Alcazar MD Consults: 10/18/16 20:22 [facility] Consult [CONS] Routine Reason for consultation: Fistula with 2 drain tubes,draining more than it ever has. 10/19/16 14:12 Physician Consult Routine Consulting Provider: Osbaldo You Reason For Exam: rectal fistulas 10/22/16 Pharmacy Consult Routine Pharmacy Consult: IV Iron-Chronic Anemia - Discharge Diagnosis (1) Ulcerative colitis Qualifiers: Ulcerative colitis location: unspecified ulcerative colitis location Digestive disease complication type: with fistula Qualified Code(s): K51.913 - Ulcerative colitis, unspecified with fistula Problem Details: Acute flare; with fistulas Status: Acute (2) Anemia of chronic disease Status: Chronic (3) Iron deficiency Status: Chronic (4) Reactive thrombocytosis Status: Acute (5) Chronic ulcerative colitis with fistula Status: Acute (6) HTN (hypertension) Qualifiers: Hypertension type: essential hypertension Qualified Code(s): I10 - Essential (primary) hypertension Status: Suspected (7) Acute pain Problem Details: POA Status: Acute (8) Hypokalemia Problem Details: POA Status: Resolved (9) Leukocytosis Qualifiers: Leukocytosis type: unspecified Qualified Code(s): D72.829 - Elevated white blood cell count, unspecified Status: Acute - Procedures Procedures: Pharmacy Consult-[facility] - Consult Information IV IRON CONSULT: Dx: Chronic Anemia: Will give TDI (Total Dose Infusion) over 4 hours. Actual body weight = 89.9kg Hgb Level = 9.5 g/dL (low over last few readings) Calculated Dosing weight = 77.6 kg Total dose needed: 1900 mg (38 mL) Will give test dose of 25mg IV push over 30 seconds. Watch VS q 15 minutes x 1 hr. (watching for anaphylaxis, respiratory distress, hives.) If no reaction will give full dose in NS 500ml TRA 125ml/hr. Watch VS q 1 hr during infusion. - Laboratory Labs: 10/23/16 03:57 10/23/16 03:56 Laboratory Tests 10/18/16 10/18/16 10/20/16 16:36 16:36 10:19 WBC 13.3 H Plt Count 724 H 777 H* Potassium 3.3 L Creatinine 0.7 L Iron TIBC % Saturation C-Reactive Protein 193.4 H 10/21/16 10/21/16 10/21/16 04:33 04:33 16:57 WBC Plt Count 830 H* 904 H* Potassium Creatinine Iron 13 L TIBC 299 % Saturation 4 L C-Reactive Protein 10/23/16 03:56 WBC Plt Count Potassium Creatinine Iron TIBC % Saturation C-Reactive Protein 25.1 H - Radiology Radiology: Date of Exam: 10/18/16 PROCEDURE: CT abdomen pelvis w con: Comparison: CT abdomen and pelvis dated February 11, 2016 and December 08, 2014 Technique: Axial CT images were performed through the abdomen and pelvis after the administration of intravenous contrast. Coronal and sagittal two-dimensional reformats. Contrast: Omnipaque 300 100 mL Findings: The lung bases are clear. The liver is unremarkable. The gallbladder is within normal limits. The spleen, pancreas and adrenal glands are normal. Bilateral renal cysts. No abdominal or pelvic adenopathy. Bladder is normal. Wall thickening and inflammatory change involving the colon extending from the proximal transverse through the rectum consistent with patient's history of ulcerative colitis. The appendix appears normal. No evidence of small bowel obstruction. Colonic involvement is of similar extent compared to the prior study. Impression: Continued findings of ulcerative colitis which appears active extending from the transverse colon through the rectum. There is a probable inflammatory stricture at the splenic flexure leading to gradual progression of chronic transverse colonic distention. Signed by Dr. Narciso Dumont on 10/19/2016 8:38 AM. History of Present Illness HPI: 46 yo M with PMH of ulcerative colitis presented to the ED today with reports of a UC flare. Patient reports his symptoms started 1 week ago with fever and rectal fistula opening. He reports 10-15 loose stools a day, some with a mild amount of blood in them. He reports he has been taking his mesalamine at home and no other medications. He gets a flare about once a year. 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 He reports he decided to come in to the ED today because he was in bed for 2-3 days and he just wasn't getting any better. He was admitted for steroids and supportive care. For complete details of the H&P refer to that document. Objective Vital signs: Temperature 95.9 F L 10/23/16 07:20 Pulse Rate 56 L 10/23/16 07:20 Respiratory Rate 18 10/23/16 07:20 Blood Pressure 150/83 H 10/23/16 07:20 Pulse Oximetry 96 10/23/16 07:20 Oxygen Delivery Method Room Air Weight: 88.5 kg Hospital Course This is a general summary of the patient's hospital course. For more details refer to the complete medical record. Hospital course: 10/18/16 21:01 Admission UC with flare. Will start supportive care with IVF, CLD and PO steroids. Will start prednisone 60mg QD. Patient has not used biologics in the past for [place] and has not seen his GI specialist in a few years. Patient hypodermically stable and not acidic at this time. Continue home mesalamine. Consider colorectal surg consult in AM. 10/19/16 Clinically improving. We'll continue steroids and mesalamine. Advance diet as tolerated. Continue IV fluids. Dr You consulted for surgical evaluation. Wound to see for his rectal fistulas. Dr Platt Agree with current medical management of this patient by placing him on Asacol and high-dose oral corticosteroids. Patient without an acute surgical abdomen at this time. Patient without perianal abscess requiring surgical intervention. Will continue to see the patient intermittently during his hospital course. Wound Care Posterior Buttock Wound Type: Fistula Wound Present on Admission?: Yes Primary Dressing: Absorbant Pad (Pt has multiple fistulas in rectal area, Pt had a lianet drain in one previously placed. At this time Dr You consulted.) 10/20/16 19:59 Osbaldo continues to require narcotic pain medications and have multiple loose stools daily with associated blood loss. Hemoglobin is down from approximately 12 a year ago to current value of 9.5 with development of microcytosis and thrombocytosis suggestive of iron deficiency. There is persistent leukocytosis which may in part be due to steroid administration. Surgical consultation pending. Mesalamine initiated yesterday-dose increased to 1600 mg 3 times a day. Continue steroids but will resume IV dosing until abdominal symptoms began to stabilize. Add IV metronidazole pending surgical consultation. Suspect iron deficiency due to chronic rectal blood loss-iron studies to be obtained. Thrombocytosis likely due to acute inflammation that may also reflect iron deficiency. Supplement phosphorus po. 10/21/16 16:26 Osbaldo continues to require narcotic pain medications and have multiple loose stools daily with associated blood loss. Hemoglobin stable overnight, iron studies consistent with iron deficiency-oral supplements initiated once daily. Leukocytosis improving slowly with increased left shift-if worsens may require repeat CT imaging to exclude abscess formation. Continue IV steroids, oral mesalamine, and metronidazole for acute UC flare. Exam/symptoms minimally changed, may be able to convert to oral steroids in 1-2 days. Thrombocytosis likely due to acute inflammation that may also reflect iron deficiency. Supplement phosphorus po. Recheck in 2-3 days. Pain management problematic, patient has utilized oral Percocet in the past-we will add Percocet 10 every 4 hours as needed to try to minimize IV narcotic use. 10/22/16 11:23 *Acute on Chronic U.C. with chronic fistulas Progressive reactive thrombocytosis concerning for worsening infection. Will add Cipro for bacterial coverage. If not improvement in labs by tomorrow , consider repeating CT scan of A/P. Dr. You following. Continue Flagyl. Tolerating regular diet. *Dehydration- IVF ongoing - rate decreased to 50cc/hr as oral intake improving. *Chronic diarrhea- supportive care. Abx, IVF. *Pain- PO percocet with IV Dilaudid for breakthrough pain. *Low phosphorus- replacing. Repeat renal panel in AM. *EMIL- IV iron, PO iron with vit C for replacement. *HTN- acute? continue to monitor- if persists, will need to add medication. Continue ongoing care. Repeat labs in AM. High risk- IV pain medications. 10/23/16 11:36 *UC with flair/Hx. rectal fistula Does report an exacerbation of pain, which he has attributed to IV Iron Continue steroids. Improving leukocytosis/thrombocytosis with the addition of Cipro. Continue Flagyl *Hydration- IVF. Taking oral well without nausea or increased ab pain. *Anemia, acute on chronic- S/P IV Iron. Continue PO Iron, Vit C. *HTN- Has been consistently elevated. Add BLANCO-I and monitor. Overall, he continues to demonstrate improvement. Will d/c to home today. Metroniazole and ciprofloxacin for 7 days. Predisone 60mg today x1 then decrease to 40mg for 1 week-can further taper by PCP. Continue Asacol to 800mg TID dosing. Likely can taper down as symptoms improve. Was one once a day dosing prior to admission. Continue oral Iron/vit C. Lisinopril for BP control. Will have pt f/u with Dr Alcazar in 1 week: Evaluation of UC, BP, taper Predinsone - recommend CBC at that time due to anemia and thrombocytosis and BMP due to BLANCO use. See orders for details. Time spent with patient: discharge greater than 30 minutes DVT Prophylaxis: SCD's Discharge Plan - Med Rec/Dispo Referrals/Follow Up: Arslan Alcazar MD [Family Provider] - 1 Week (Hospital F/U: Check BP- lisinopril started. Taper Predinisone. Check CBC due to anemia and thrombocytosis. Check BMP due to BLANCO use. ) Prescriptions: New Ascorbic Acid [Vitamin C] 500 mg PO WB tablet Ciprofloxacin [Cipro] 500 mg PO BID #14 tablet Ferrous Sulfate [Feosol] 324 mg PO WB tablet Lisinopril [Prinivil] 10 mg PO DAILY #30 tablet MetroNIDAZOLE [Flagyl] 500 mg PO BIDWM #14 tablet Oxycodone/APAP 10/325 [Percocet 10/325] 1 tab PO Q4H PRN #40 tablet PRN Reason: Pain Mesalamine [Asacol Hd] 800 mg PO TID #90 tablet PredniSONE [Deltasone] 40 mg PO WB #30 tablet Continue Acetaminophen [Acetaminophen Extra Strength] 1,000 mg PO Q4H PRN PRN Reason: Pain Discontinued Mesalamine [Asacol Hd] 800 mg PO DAILY Discharge Instructions/Outpatient Orders: Final Provider Discharge Instructions Location: Determined By Patient - Disposition 01 Discharged Home, Self-Care - Attestation Attestation Narrative: 10/23/16 13:35 Have independently interviewed and examined pt. See progress note from today for details. Pt medically stable for discharge to home.
[2016-10-23] MEDS ORDERED: MetroNIDAZOLE 500 MG TABLET PO SCH (17:30)
[2016-10-23] MEDS ORDERED: CIPROFLOXACIN 500 MG TABLET PO SCH (21:00)
== END 2016-10-23 14:00 | disposition home or self-care (01) | DRG 386 ==
LOC: ED 16:05 → MED 19:55
PROVIDERS: ADMIT Internal Medicine; ATTEND Hospitalist